=== PATIENT | female | born 1995 | race Caucasian/White ===

== ENCOUNTER → 2016-11-06 | Day surgery (SDC) | payer OTHER ==
[~2016-11-06] VITALS: Ht 162.6 cm; Wt 56.0 kg
[~2016-11-06] MED LIST: CLARITIN10 MG PO; DOXYCYCLINE100 MG PO; MOTRIN800 MG PO; NORCO 5-325 TA1 EACH PO
--- NOTE | ~2016-11-06 | OR ---
PATIENT'S NAME: MYRA KU [facility] AGE: 21 Y [address] ROOM: [place] [address] LOCATION: [facility] [place] ADMIT DATE: 11/06/2016 OR/Procedure Report DISCHARGE DATE: FAMILY PHYSICIAN: PHYSICIAN, NO ATTENDING PHYSICIAN: ALESHIA PEREIRA SURGEON: Aleshia Pereira MD EX CHEF: None. DATE OF PROCEDURE: 11/06/2016 PROCEDURE PERFORMED: Suction dilation and curettage. PREOPERATIVE DIAGNOSES: 1. Spontaneous at 17 weeks gestational age measuring 11 weeks by ultrasound. 2. Tobacco abuse. POSTOPERATIVE DIAGNOSES: 1. Spontaneous at 17 weeks gestational age measuring 11 weeks by ultrasound. 2. Tobacco abuse. ESTIMATED BLOOD LOSS: 800 mL. FINDINGS: Normal appearing cervix, vagina, and perineum. Cervix was slightly dilated. No visible vaginal bleeding. At start of procedure, the uterus was approximately 14 weeks in size. Normal amount of products of conception were obtained. SPECIMENS: Products of conception. ANTIBIOTICS: Doxycycline 100 mg IV and patient also received 200 mg p.o. postoperatively. ANESTHESIA: General. COMPLICATIONS: None. DISPOSITION: The patient was stable and sent to PACU. INDICATIONS FOR PROCEDURE: The patient is a 21-year-old G1, P0, who presented on November 06, 2016 with complaints of vaginal bleeding. She had a at approximately 17 weeks gestational age dated by a 13-week ultrasound performed at the end of September. Ultrasound performed today showed a fetus measuring approximately 11 weeks in size with no cardiac activity. Discussion was held with the patient regarding options for management, and she desired to PATIENT'S NAME: MYRA KU [facility] AGE: 21 Y [address] ROOM: [place] [address] LOCATION: [facility] [place] ADMIT DATE: 11/06/2016 OR/Procedure Report DISCHARGE DATE: FAMILY PHYSICIAN: PHYSICIAN, NO ATTENDING PHYSICIAN: ALESHIA PEREIRA proceed with suction dilation and curettage. She is aware of the risks and benefits of the procedure to include, but not limited to risk of bleeding, risks associated with anesthesia, risk of infection, risk of thromboembolism, and risk of injury to the bowel and bladder. She is aware of the risks and desired to proceed. DESCRIPTION OF PROCEDURE: The patient was taken back to the operating room, where a time-out was performed to confirm correct patient and correct procedure. She was placed under general anesthesia without difficulty. She was positioned in the dorsal lithotomy position in [facility]ane stirrups. She was prepped and draped in the usual sterile fashion and her bladder was drained. A weighted speculum was placed in the patient's vagina and a right- angled retractor was used to retract inferiorly. A ring forceps was applied to the anterior lip of the cervix. The cervix was progressively dilated to 20- Amharic size. Attempt was made to pass a 10-mm suction curette, but was unsuccessful. An 8-mm curette was able to be passed. Suction was tested and found to be adequate. The curette was then hooked up to the suction, and was gently advanced to the fundus. Several successive passes were made to remove products. Sharp curettage was then performed gently. Suction curettage was reintroduced. This process was repeated until all products were removed and the patient's bleeding had improved. She was given one dose of IM Methergine to help with postoperative bleeding. All instruments were removed from the vagina. COUNT RESULTS: All needle, sponge, and instrument counts were noted to be correct x2. CONDITION: The patient was sent to the PACU in stable condition. MD BOZENA GUAJARDO/irma /[id number] d: 11/07/16 0345 t: 11/11/16 0432, OPERATIVE SUMMARY
--- NOTE | ~2016-11-06 | HP ---
PATIENT'S NAME: MYRA KU [facility] AGE: 21 Y [address] ROOM: [place] [id number] [place] [facility] [place] DATE: 11/06/2016 History & Physical DISCHARGE DATE: FAMILY PHYSICIAN: PHYSICIAN, NO ATTENDING PHYSICIAN: BON PEREIRA DATE OF SERVICE: HISTORY OF PRESENT ILLNESS: The patient is a 21-year-old, G1, P0, [facility]. The patient states she filled a pad in approximately an hour. The patient had a known with an ultrasound performed at [facility] back at the end of September putting her at approximately 13 weeks' gestational age at that time. She would be approximately 17 weeks' gestational age today. The patient was concerned about miscarriage and presented to the ER. She does endorse some mild cramping. The patient's blood type was obtained and was O positive. Hemoglobin was stable at 13.9. She had an ultrasound performed showing a crown-rump length corresponding to a gestational age of 11 weeks and 1 day with no cardiac activity. Ultrasound findings were discussed with the patient, and I was asked to consult with her regarding her management options. The patient appears comfortable at this time and is appropriately tearful. She is stating that she is very hungry and would like to go outside to smoke a cigarette. PAST MEDICAL HISTORY: Noncontributory. PAST SURGICAL HISTORY: Noncontributory. OBSTETRICAL HISTORY: As stated above. The patient is a G1, P0, with an ultrasound performed in September putting her at approximately 17 weeks' gestational age today. SOCIAL HISTORY: She reports tobacco and alcohol use. Denies any illicit drug use. ALLERGIES: DENIES ANY KNOWN ALLERGIES. REVIEW OF SYSTEMS: Negative except as noted above. PHYSICAL EXAMINATION: PATIENT'S NAME: MYRA KU [facility] AGE: 21 Y [address] ROOM: [place] [address] [place] [facility] [place] DATE: 11/06/2016 History & Physical DISCHARGE DATE: FAMILY PHYSICIAN: PHYSICIAN, NO ATTENDING PHYSICIAN: BON PEREIRA VITAL SIGNS: Stable. GENERAL: She appears awake, alert, and oriented. She is not in any acute distress. HEART: Regular rate and rhythm. LUNGS: Clear to auscultation bilaterally. ABDOMEN: Soft, appropriately tender. PELVIC: Exam was deferred at this time. Per the attending physician in the ER, the patient did have an open cervical os with minimal vaginal bleeding at the time of their exam. LABORATORY DATA: On laboratory review again, hemoglobin is stable at 13.9, hCG is 25,354. The patient's blood type is O positive. ASSESSMENT AND PLAN: The patient is a 21-year-old G1, P0 with a demise measuring 11 weeks and 1 day and gestational age of approximately 17 weeks. 1. Discussed with the patient and her mother options for management. Due to how far long she would be based on her previous ultrasound, I would not recommend that she wait for spontaneous passage at home, especially since she has already had an episode of heavy bleeding. We discussed that she could consider medical management with Cytotec and close observation in the hospital versus surgical management with dilation and curettage. She was counseled regarding the risks and benefits of both and desires to proceed with surgical procedure. She is aware of the risks and benefits of the procedure to include, but not limited to risk of bleeding, risk of infection, risk of injury to bowel and bladder, and risk associated with the anesthesia. She is aware of the risks and desired to proceed. Type and cross x2 units was ordered. We will give 100 mg of IV doxycycline x1 for prophylactic antibiotics and a dose of 200 mg p.o. postoperatively. The patient will be sent home with pain medications. We will have Methergine, Hemabate, and Pitocin on hand in the OR in the incidence of increased bleeding. BON PEREIRA MD GT/irma /[id number] D: T: 429 HISTORY & PHYSICAL
--- NOTE | ~2016-11-06 | ER ---
PATIENT'S NAME: MYRA KU [facility] AGE: 21 Y [address] ROOM: [place] [address] LOCATION: [facility] [place]MIT DATE: 11/06/2016 ER/Outpatient Report DISCHARGE DATE: FAMILY PHYSICIAN: PHYSICIAN, NO ATTENDING PHYSICIAN: BON PRICE Time of patient Arrival: 1607 hours Time of patient Evaluation: 1610 hours CHIEF COMPLAINT: 17 weeks , vaginal bleeding. HISTORY OF PRESENT ILLNESS: This is a 21-year-old female, who presents to the ER. States that she believes that she is 17 weeks long. She states she was initially seen at [facility] [place] in the middle of September and had an ultrasound done at that time. She states today she noticed some vaginal spotting and then had some minor lower abdominal cramping, and then this pain increased prior to arrival. She also states that she increased in her vaginal flow as well and saturated the pad prior to coming in. She has not seen any tissue passed. She states that she feels a little bit lightheaded and dizzy. She denies any other problems at this time. She states she has been once in the past, but it resulted in a miscarriage. She believes that she is O positive blood type. She states that she has no local physician here in [place]. ALLERGIES: NO KNOWN ALLERGIES. MEDICATIONS: Please see medication list nurse's notes. PAST MEDICAL HISTORY: Negative. SOCIAL HISTORY: She smokes cigarettes for the past 4 years. She still drinks alcohol socially, she states she has cut back on that. She does have a remote history of drug use. REVIEW OF SYSTEMS: All systems reviewed were negative exception of those discussed in the HPI. PHYSICAL EXAMINATION: VITAL SIGNS: Height 5 feet 4 inches, stated weight 56.5 kg taken, blood pressure is 115/69, pulse 87, respirations 18, saturations 96% on room air. PATIENT'S NAME: MYRA KU [facility] AGE: 21 Y [address] ROOM: [place] [address] LOCATION: [facility] [place] ADMIT DATE: 11/06/2016 ER/Outpatient Report DISCHARGE DATE: FAMILY PHYSICIAN: PHYSICIAN, NO ATTENDING PHYSICIAN: BON PRICE heart tones, we could not Doppler those. GENERAL: Alert, calm, well-developed female, in no acute distress. HEAD: Normocephalic. She does display moist mucous membranes. EYES: Pupils are equal and reactive to light. NECK: Supple. No lymphadenopathy. LUNGS: Clear to auscultation bilaterally. HEART: Regular rate and rhythm. ABDOMEN: Soft. She has some minor tenderness in her suprapubic area with palpation. She has no guarding. No rebound tenderness. She has good bowel sounds throughout. : Done. She has some dark brown and red bloody discharge in the vaginal vault. The cervical os is slightly open. No tissue, no clots were noted. SKIN: Warm, dry, and intact. NEURO: Cranial nerves 2 through 12 grossly intact. Gait is steady without assistance. LABORATORY DATA: CBC: White count is 13.9, hemoglobin is 13.9, platelets 248, ANC is 10.3. CMS: Potassium 3.6, sodium 136, BUN 7, [place] [address].0. Blood type was O positive. Clot was drawn. Ultrasound was done and shows no heart rate and it is consistent with demise measuring approximately 11 weeks, and this was reported by ultrasound. IMPRESSION: Miscarriage. ASSESSMENT AND PLAN: We did monitor the patient here for quite some time. We did start an IV here in the emergency room. She did not require any pain medication while she was here. I did speak with Dr. Price who is on-call for [employer] and she will be coming and evaluating the patient here in the emergency room. The patient and the patient's mother understand and agree with care. ULISES PRITCHARD PA-C FOR DO QUINN COLLINS/irma /[id number] ATTENDING ADDENDUM: I saw and evaluated the patient. I have discussed with the PA, agree with the PA's findings and plan and agree with the documented note above. I did personally perform a bedside ultrasound which does show concern for no cardiac activity. We have performed a formal ultrasound. Dr. Price is contacted as described above. TERE BELL DO d: 11/07/16 0209 t: 11/11/16 0702, OUTPATIENT REPORT
[2016-11-06 17:05] LABS: BASOPHIL # 0.1 K/uL (0.0-0.2); BASOPHIL % 0.6 %; EOSINOPHIL # 0.2 K/uL (0.0-0.5); EOSINOPHIL % 1.2 %; HEMATOCRIT 38.6 % (33.0-46.0); HEMOGLOBIN 13.9 g/dL (11.0-15.0); IMMATURE GRANULOCYTE # 0.1 K/uL (0.0-0.3); IMMATURE GRANULOCYTE % 0.4 %; LYMPHOCYTE # 2.3 K/uL (0.8-4.0); LYMPHOCYTE % 16.8 %; MCH 34.2 pg (27.0-34.0); MCV 95.1 fl (83.0-98.0); MONOCYTE % 7.3 %; MPV 9.5 fl (9.4-12.4); NEUTROPHIL # (ANC) 10.3 K/uL (1.8-7.8); NEUTROPHIL % 73.7 %; NRBC % 0 /100WBC (0-0.00); PLATELET COUNT 248 K/uL (150-450); RBC 4.06 M/uL (3.50-5.00); WBC 13.9 K/uL (4.0-11.0)
[2016-11-06 17:26] LABS: ALBUMIN 3.4 gm/dL (3.5-5.0); ALK PHOS 69 IU/L (33-138); ALT 21 IU/L (12-78); ANION GAP 10.6 (10.0-19.0); AST 18 IU/L (10-40); BLOOD UREA NITROGEN 7 mg/dL (6-24); CALCIUM 7.9 mg/dL (8.5-10.5); CHLORIDE 103 mMol/L (96-110); CO2 26 mMol/L (22-32); CREATININE 0.4 mg/dL (0.5-1.1); POTASSIUM 3.6 mMol/L (3.7-5.1); SODIUM 136 mMol/L (135-145); TOTAL BILIRUBIN 0.1 mg/dL (0.0-1.5); TOTAL PROTEIN 6.8 g/dL (6.0-8.4)
== END | disposition disaster alternative care site (69) ==
LOC: GMED 16:07 → GSDC 20:23
PROVIDERS: Physician Assistant Medical
PROC: 10D17ZZ Extraction of Products of Conception, Retained, Via Natural or Artificial Opening (ICD-10-PCS; principal; 2016-11-06)
DX: O02.1 Missed abortion (principal)
CPT/HCPCS: J2210; J3010; J7030; J7060; J7120